=== PATIENT | male | born 1970 | race Caucasian/White ===

== ENCOUNTER 2018-08-29 10:08 | Emergency (ER) | payer OTHER ==
[2018-08-29 10:22] VITALS: BP 122/84; PULSE 78; TEMP 97.9; BMI 25.2
[2018-08-29] MEDS ORDERED: KETOROLAC TROMETHAMINE 60 MG/2 ML VIAL IM ONE (10:38)
[2018-08-29] MEDS ORDERED: KETOROLAC TROMETHAMINE 60 MG/2 ML VIAL ONE (10:42)
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
== END 2018-08-29 10:52 | disposition home or self-care (01) ==
LOC: JERFT 10:08
PROC: 3E0233Z Introduction of Anti-inflammatory into Muscle, Percutaneous Approach (ICD-10-PCS; principal; 2018-08-29)
DX: S39.012A Strain of muscle, fascia and tendon of lower back, initial encounter (principal); V49.59XA Passenger injured in collision with other motor vehicles in traffic accident, initial encounter; Y92.414 Local residential or business street as the place of occurrence of the external cause; Y93.89 Activity, other specified; Y99.8 Other external cause status
CPT/HCPCS: 99281-25

== ENCOUNTER 2018-11-15 10:37 | Emergency (ER) | payer OTHER ==
[2018-11-15 10:52] VITALS: BP 98/74; PULSE 98; BMI 25.8
--- NOTE | 2018-11-15 11:29 | PDOC ---
History of Present Illness - General History Source: Patient - History of Present Illness Timing/Duration: reports: constant <Khmer,Matilda - Last Filed: 11/15/18 12:50> <Jitendra Major - Last Filed: 11/17/18 20:39> - General Chief Complaint: Pain Stated Complaint: PAIN Time Seen by Provider: 11/15/18 11:18 Past History - Past Medical History Anemia: No Asthma: No Cancer: No Cardiac Disorders: No CVA: No COPD: No CHF: No Dementia: No Diabetes: No GI Disorders: No Disorders: No HTN: Yes Hypercholesterolemia: No Liver Disease: No Psychiatric Problems: Yes Seizures: No Thyroid Disease: No - Surgical History Abdominal Surgery: No Appendectomy: No Cardiac Surgery: No Cholecystectomy: No Lung Surgery: No Neurologic Surgery: No Orthopedic Surgery: No - Immunization History Immunization Up to Date: Yes - Psycho Social/Smoking Cessation Hx Smoking History: Current every day smoker Have you smoked in the past 12 months: Yes Number of Cigarettes Smoked Daily: 10 Cigars Per Day: 0 Information on smoking cessation initiated: Yes 'Breaking Loose' booklet given: 07/06/12 Hx Alcohol Use: Yes (BEERS DAILY) Drug/Substance Use Hx: No Substance Use Type: Heroin Hx Substance Use Treatment: Yes (detox, mmtp) <EmilioMatilda - Last Filed: 11/15/18 12:50> <Jitendra Major - Last Filed: 11/17/18 20:39> - Past Medical History Allergies/Adverse Reactions: Allergies Allergy/AdvReac Type Severity Reaction Status Date / Time No Known Allergies Allergy Verified 11/15/18 10:52 Home Medications: Ambulatory Orders Albuterol Sulfate Inhaler - [Ventolin HFA Inhaler -] 2 inh PO QID PRN #1 inhaler 09/02/18 Darunavir Ethanolate [Prezista -] 1 tab PO DAILY #30 tablet 09/02/18 Emtricitabine/Tenofov Alafenam [Descovy 200-25 mg Tablet (Nf)] 1 tab PO DAILY # 30 tablet 09/02/18 Lisinopril [Zestril] 10 mg PO DAILY #30 tablet 09/02/18 Mag Hydrox/Al Hydrox/Simeth [Mylanta Oral Suspension -] 10 ml PO Q6H PRN #1 bottle 09/02/18 Multivitamin,Therapeutic [Thera] 1 each PO DAILY #30 tablet 09/02/18 Ritonavir [Norvir -] 1 tab PO DAILY #30 tab 09/02/18 Clonazepam [Klonopin] 1 mg PO AM #30 tablet MDD 1mg 11/09/18 Mirtazapine [Remeron -] 1 tablet PO HS #30 tablet 11/09/18 Olanzapine [Zyprexa -] 5 mg PO DAILY #30 tablet 11/09/18 Venlafaxine HCl ER [Effexor Xr -] 75 mg PO DAILY #30 cap.er.24h 11/09/18 Zolpidem Tartrate [Ambien] 5 mg PO HS #20 tablet MDD 1 11/09/18 clonazePAM [Klonopin -] 0.5 mg PO DAILY #30 tablet MDD 0.5 11/09/18 Review of Systems - Review of Systems Constitutional: No: Chills, Fever Respiratory: No: Cough, Shortness of Breath Cardiac (ROS): Yes: Chest Pain. No: Lightheadedness, Palpitations, Syncope ABD/GI: No: Nausea, Vomiting <Matilda Jhaveri Last Filed: 11/15/18 12:50> *Physical Exam - Vital Signs Last Vital Signs Temp Pulse Resp BP Pulse Ox 98 H 19 98/74 99 11/15/18 10:48 11/15/18 10:48 11/15/18 10:48 11/15/18 10:48 - Physical Exam General Appearance: Yes: Appropriately Dressed. No: Apparent Distress HEENT: positive: Normal Voice Neck: positive: Supple Respiratory/Chest: positive: Chest Tender (tenderness to site fo breast tissue, no mas, no skin changes), Lungs Clear, Normal Breath Sounds. negative: Respiratory Distress Cardiovascular: positive: Regular Rate, S1, S2 Gastrointestinal/Abdominal: positive: Soft Integumentary: positive: Dry, Warm Neurologic: positive: Fully Oriented, Alert, Normal Mood/Affect <Matilda Jhaveri Last Filed: 11/15/18 12:50> - Vital Signs Last Vital Signs Temp Pulse Resp BP Pulse Ox 98 H 19 98/74 99 11/15/18 10:48 11/15/18 10:48 11/15/18 10:48 11/15/18 10:48 <Jitendra Major - Last Filed: 11/17/18 20:39> ED Treatment Course - Medications Given in the ED: ED Medications Discontinued Medications Generic Name Dose Route Start Last Admin Trade Name Bruce PRN Reason Stop Dose Admin Ibuprofen 800 mg 11/15/18 11:53 11/15/18 12:44 Motrin - PO 11/15/18 11:54 800 mg ONCE ONE Administration <Jitendra Major - Last Filed: 11/17/18 20:39> Medical Decision Making - Medical Decision Making 11/15/18 11:28 48 yo M, history of HTN< HLD, smoker, on methadone, HCV, AIDs w/ CD4 18 on 2018, here here with right chest pain. Patient states for the past 3 days has had non-radiating, stabbing R chest pain that worsens with deep inspiration. Otherwise no shortness of breath and no diaphoresis, nausea, vomiting, palpitations, cough, fever or chills. No h/o similar pain. No recent trauma see exam R CP in pt w/ AIDs Not great story for ACS Unlikely PE No infectious sxs ?MSK as pain very reproducible on exam -ekg -cxr 11/15/18 12:50 Stable R upper lobe granuloma on CXR, no acute findings. EKG unremarkable. Pt stable for dc to take otc meds prn pain and follow w/ w/ PMD at [facility] <Matilda Jhaveri - Last Filed: 11/15/18 12:50> - Medical Decision Making 11/17/18 20:39 The patient was seen and evaluated in conjunction with AL Jhaveri under my direct supervision, ancillary studies were reviewed. I agree with the plan as outlined by AL Jhaveri . <Jitendra Major - Last Filed: 11/17/18 20:39> Discharge - Discharge Information Problems reviewed: Yes <Matilda Jhaveri - Last Filed: 11/15/18 12:50> <Jitendra Major - Last Filed: 11/17/18 20:39> - Discharge Information Clinical Impression/Diagnosis: Right-sided chest pain Condition: Good Disposition: HOME - Patient Discharge Instructions Patient Printed Discharge Instructions: DI for Chest Pain Additional Instructions: The cause of your chest pain is unclear, but might be muscular given exam findings. Your EKG and chest x-ray showed no cause for your pain. Take Motrin for pain as needed and follow-up with your PMD
[2018-11-15] MEDS ORDERED: IBUPROFEN 400 MG TABLET (FP) PO ONE ×2 (11:53→12:42)
--- NOTE | 2018-11-15 15:35 | EKG ---
Test Reason : Blood Pressure : / mmHG Vent. Rate : 065 BPM Atrial Rate : 065 BPM P-R Int : 170 ms QRS Dur : 098 ms QT Int : 422 ms P-R-T Axes : 067 052 061 degrees QTc Int : 438 ms NORMAL SINUS RHYTHM POSSIBLE LEFT ATRIAL ENLARGEMENT BORDERLINE ECG NO PREVIOUS ECGS AVAILABLE Confirmed by Patricio Burleson MD ([id number]) on 11/15/2018 3:34:24 PM Referred By: Confirmed By:Patricio Burleson MD
== END 2018-11-15 13:00 | disposition home or self-care (01) ==
LOC: JER 10:37
DX: R07.9 Chest pain, unspecified (principal); E78.5 Hyperlipidemia, unspecified; B20 Human immunodeficiency virus [HIV] disease; B18.2 Chronic viral hepatitis C; F11.20 Opioid dependence, uncomplicated; F17.210 Nicotine dependence, cigarettes, uncomplicated
CPT/HCPCS: 71046-TC-FY; 93005; 93010; 99281-25

== ENCOUNTER 2018-12-05 12:19 | Day surgery (SDC) | payer OTHER ==
[2018-12-05 14:06] VITALS: BMI 26.8
[2018-12-05 14:18] LABS: HEMATOCRIT 39.2 % (35.4-49); HEMOGLOBIN 13.1 GM/dL (11.7-16.9); MCH 34.1 pg (25.7-33.7); MCHC 33.5 g/dl (32.0-35.9); MEAN PLT VOLUME 7.9 fl (7.5-11.1); PLATELET COUNT 228 K/MM3 (134-434); RBC 3.85 M/mm3 (4.00-5.60); RDW 13.3 % (11.9-15.9); WHITE BLOOD COUNT 7.5 K/mm3 (4.0-10.0)
[2018-12-05 14:44] LABS: BILIRUBIN,TOTAL 0.4 mg/dL (0.2-1); BLOOD UREA NITROGEN 10.6 mg/dL (7-18); CALCIUM 8.8 mg/dL (8.5-10.1); CREATININE 1.1 mg/dL (0.55-1.3); POTASSIUM 4.3 mmol/L (3.5-5.1); TOT PROT 8.1 g/dl (6.4-8.2)
[2018-12-05 15:34] VITALS: TEMP 98.1
[2018-12-05 16:54] VITALS: BP 159/92; PULSE 71
--- NOTE | 2018-12-07 16:47 | PATH ---
Surgical Pathology Report Patient Name: JOVAN FRANCIS [facility]. Rec. #: [id number] /Age/Gender: 1970 (Age: 48) / M Account: [id number] Location: [facility]-ENDOSCOPY Taken: 12/05/2018 Received: 12/06/2018 Reported: 12/07/2018 Physicians: Chirag Zamora M.D. Specimen(s) Received A: DUODENUM B: BODY ERYTHEMA C: EROSION PROXIMAL BODY Clinical History Early satiety Postoperative diagnosis: Erosive gastritis Final Diagnosis A. DUODENUM, BIOPSY: DUODENUM MUCOSA WITH NO SIGNIFICANT PATHOLOGIC CHANGE. NO HISTOLOGIC EVIDENCE OF CELIAC DISEASE. B. BODY ERYTHEMA, BIOPSY: GASTRIC MUCOSA WITH CHRONIC GASTRITIS. IMMUNOSTAIN FOR H. PYLORI IS NEGATIVE. NEGATIVE FOR INTESTINAL METAPLASIA. C. EROSION PROXIMAL BODY, BIOPSY: GASTRIC MUCOSA WITH MILD CHRONIC GASTRITIS. IMMUNOSTAIN FOR H. PYLORI IS NEGATIVE. NEGATIVE FOR INTESTINAL METAPLASIA. Electronically Signed Russell Saez M.D. Gross Description A. Received in formalin, labeled "biopsy duodenum" are 2 buenrostro, irregular portions of soft tissue measuring 0.3 and 0.4 cm. in greatest dimension. The specimens are submitted in toto in one cassette. B. Received in formalin, labeled "biopsy body" are 2 buenrostro, irregular portions of soft tissue measuring 0.1 and 0.5 cm. in greatest dimension. The specimens are submitted in toto in one cassette. C. Received in formalin, labeled "biopsy proximal body" is a buenrostro, irregular portion of soft tissue measuring 0.4 cm. in greatest dimension. The specimen is submitted in toto in one cassette. 12/06/2018 saudi12/06/2018
== END 2018-12-05 16:10 | disposition home or self-care (01) ==
LOC: JASU-ENDO 12:19
PROVIDERS: ATTEND Internal Medicine Gastroenterology
PROC: 0DB68ZX Excision of Stomach, Via Natural or Artificial Opening Endoscopic, Diagnostic (ICD-10-PCS; principal; 2018-12-05 13:30)
DX: K29.00 Acute gastritis without bleeding (principal); R68.81 Early satiety; Z21 Asymptomatic human immunodeficiency virus [HIV] infection status; B19.20 Unspecified viral hepatitis C without hepatic coma; Z80.0 Family history of malignant neoplasm of digestive organs
CPT/HCPCS: 36415; 80053; 82105; 85027; 87522; 88305-TC; 88342-TC

== ENCOUNTER 2021-07-04 13:31 | Emergency (ER) | payer OTHER ==
[2021-07-04 13:38] VITALS: BP 122/76; PULSE 88; TEMP 98.5; BMI 20.7
== END 2021-07-04 15:38 | disposition home or self-care (01) ==
LOC: JERFT 13:31
DX: Z48.02 Encounter for removal of sutures (principal)
CPT/HCPCS: 99281-25